=== PATIENT | male | born 2000 | race Caucasian/White ===

== ENCOUNTER 2023-03-05 08:40 | Outpatient (AMB) | payer OTHER, SELFPAY ==
--- NOTE | 2023-03-05 08:58 | MHC.OFFWIV ---
Intake Vital Signs 03/05/23 09:03 Height 5 ft 8 in BP 112/70 Blood Pressure Location Rt brachial Position Sitting Pulse 93 Pulse Source Pulse Oximeter Temp 97.9 F Temp Source Temporal Artery Scan Pulse Oximetry (%) 99 Oxygen Delivery Method Room Air Intake Visit Reasons: [employer]ATE tested + Covid [id number] Intake Note: Pt is here stating he tested positive for COVID at home on 03/04/23. Pt is requesting a school and work note stating his five day quarantine. 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 He had a positive COVID test at home yesterday, and requires a note for school and work due to need for isolation. He reports generalized fatigue, body aches, fever, some chest congestion. He states he used his girlfriend's inhaler several times, which was helpful for the cough/chest tightness. Denies any shortness of breath. Denies any GI symptoms. [facility] Social History Patient Tobacco Use Status: Never used Tobacco Review of Systems Const All systems reviewed & are unremarkable except as noted in HPI and below Physical Exam Vital Signs: Last Vital Signs Temp 97.9 F 03/05/23 09:03 Pulse 93 03/05/23 09:03 BP 112/70 03/05/23 09:03 Pulse Ox 99 03/05/23 09:03 Oxygen Delivery Method Room Air 03/05/23 09:03 Const General: cooperative and ill appearing acutely HEENT Head: Yes normal to inspection Ears: hearing grossly normal bilaterally General nose exam: Normal external nose present and Normal nasal mucous membranes and turbinates present Face and sinus: Yes normal facial exam Neck Neck: Yes no lymphadenopathy Resp Effort & Inspection: normal respiratory effort and Actively coughing Quality: dry Auscultation: clear to auscultation bilaterally Cardio Palpation: normal PMI Rate: regular rate Rhythm: regular rhythm Skin General skin exam: no rashes or lesions noted Extrem General: Yes capillary refill normal and Yes no clubbing, cyanosis or edema Psych Appearance: grossly normal Mental Status: mental status grossly normal Speech and movement: Normal speech and movement present Assessment & Plan Assessment & Plan (1) COVID-19: Code(s): U07.1 - COVID-19 Plan: Patient had positive COVID-19 test yesterday. I provided him with a note for work and school outlining the need/dates for isolation per CDC guidelines. Advised him [id number] cold/flu products for symptomatic treatment, inlcuding Tylenol/Motrin, decongestants. If his symptoms worsen or he develops any shortness of breath, he should go to the ED for evaluation. He verbalizes understanding and agrees to plan. (2) Cough: Code(s): R05.9 - Cough, unspecified Qualifiers: Cough type: acute Qualified Code(s): R05.1 - Acute cough Plan: Albuterol inhaler sent to pharmacy. Reviewed indications, proper use, side effects of this. Medications: New albuterol sulfate 90 mcg/actuation 1 inh inhalation QID PRN 6.7 grams 0RF shortness of breath or wheezing R05.9 - Cough, unspecified, U07.1 - COVID-19 Coding Level of Care Code Est Pt Level 3 (44539) Diagnoses COVID-19 U07.1 Acute cough R05.1 Cough type: acute
[2023-03-05 09:03] VITALS: BP 112/70; PULSE 93; TEMP 36.6; O2SAT 99
== END 2023-03-05 09:56 | disposition home or self-care (01) ==
PROVIDERS: PCP Nurse Practitioner Family; Visit Provider Nurse Practitioner Family
DX: U07.1 COVID-19 (principal); R05.1 Acute cough
CPT/HCPCS: 99213

== ENCOUNTER 2023-06-27 14:15 | Outpatient (AMB) | payer OTHER, SELFPAY ==
[2023-06-27 14:23] VITALS: BP 130/78; PULSE 73; O2SAT 98; BMI 23.7
--- NOTE | 2023-06-27 14:23 | MHC.PC.OV ---
Vital Signs 06/27/23 14:23 Height 5 ft 8 in Weight 156 lb 2 oz BMI 23.7 BP 130/78 Blood Pressure Location Rt brachial Position Sitting Pulse 73 Pulse Source Pulse Oximeter Pulse Oximetry (%) 98 Oxygen Delivery Method Room Air Intake Visit Reasons: Est care Intake Note: Pt is here to est care Allergies No Known Allergies Allergy (Unverified 06/27/23 14:34) Medication List - Last Reconciled 06/27/23 by LEONARDA Martin No Known Home Meds Tobacco use date assessed: 06/27/23 Dental Screening Dental Screen Date: 06/27/23 Did you have a dental visit in the last 12 months?: No Did you have a dental problem in the last 6 months where you did not have access to dental care?: No Was dental information given to patient?: No HPI HPI Comments History of Present Illness Details Patient is a 23-year-old male who I am meeting for the 1st time. He was seen in our walk-in 4 months prior for diagnosis of COVID and was given albuterol inhaler. Patient has been instructed to send past medical records from his previous provider. The patient states he has a past medical history of for ADHD and anxiety. He states that he is not taking medication for these in over a year. Patient is interested in restarting medications, he does have several restrictions based on his occupation as a road oiling truck driver. Patient will meet with community navigator to assist in finding psychiatrist. Patient denies SI/HI. [facility] Medical History (Updated 06/27/23 @ 15:03 by LEONARDA Martin) Generalized anxiety disorder ADHD Social History Housing: House Patient Tobacco Use Status: Never used Tobacco e-Cigarette/Vaping Use: Never Used Second Hand Smoke Exposure: Yes service: No Current occupational status: employed Current occupation: [employer] Current occupational exposures/hazards: No Questionnaire PHQ-9 Over the last 2 weeks, how often have you been bothered by any of the following problems? 1. Little interest or pleasure in doing things: not at all 2. Feeling down, depressed, or hopeless: not at all 3. Trouble falling or staying asleep, or sleeping too much: not at all 4. Feeling tired or having little energy: several days 5. Poor appetite or overeating: not at all 6. Feeling bad about yourself - or that you are a failure or have let yourself or your family down: not at all 7. Trouble concentrating on things, such as reading the newspaper or watching television: not at all 8. Moving or speaking so slowly that other people could have noticed. Or the opposite - being so fidgety or restless that you have been moving around a lot more than usual: not at all 9. Thoughts that you would be better off or of hurting yourself in some way: not at all Total score: 1 Depression Screening Interpretation: Negative Depression Screening Done: Yes 00210 - PHQ-9 Billing: Yes Source: Developed by Drs. Dany Campa, Amy Pack, Shane Fernandez and colleagues, with an educational erica from [employer]. Thrive Questionnaire Date Thrive assessed: 06/27/23 I am a: Patient What is your living situation today?: I have a steady place to live Within the past 12 months, did the food you bought not last and you didn't have the money to get more?: Never true Within the past 12 months, did you worry whether your food would run out before you got money to buy more?: Never true Do you have trouble paying for medicines?: No Do you have trouble getting transportation to medical appointments?: No Do you have trouble paying your heating and electricity bill?: No Do you have trouble taking care of your child, family member or friend?: No Do you have trouble with day-to-day activities such as bathing, preparing meals, shopping, managing finances, etc.?: No Are you currently unemployed and looking for a job?: No Are you interested in more education?: No THRIVE Score: 0 AUDIT C Alcohol Use Questionnaire (AUDIT-C) 1. How often do you have a drink containing alcohol?: Monthly or less 2. How many drinks containing alcohol do you have on a typical day when you are drinking?: 1 or 2 3. How often do you have six or more drinks on one occasion?: Less than monthly Total Score: 2 ENOCH-7 AMB Questionnaire ENOCH-7 Date ENOCH - 7 assessed: 06/27/23 Feeling nervous, anxious, or on edge: 1 = Several days Not being able to stop or control worryin = Several days Worrying too much about different things: 1 = Several days Trouble relaxin = Several days Being so restless that it is hard to sit still: 1 = Several days Becoming easily annoyed or irritable: 0 = Not at all Feeling afraid as if something awful might happen: 0 = Not at all Total ENOCH-7 score (0-4 normal; 5-9 mild; 10-14 moderate; 15-21 severe): 5 Source: Developed by Drs. Dany Campa, Amy Pack, Shane Fernandez and colleagues, with an educational erica from [employer]. ENOCH-7 Assessment Billing ENOCH-7 Assessment Tool: NEOCH-7 Assessment 88233 Review of Systems Const Details: Constitutional : No Weight loss, No Fever, No Chills, No Fatigue, No Malaise Cardiovascular : No Chest Pain, No SOB, No Dyspnea on Exertion, No Orthopnea, No Edema, No Palpitations Respiratory : No Cough, No Sputum, No Wheezing Gastrointestinal : No Nausea, No Vomiting, No Diarrhea, No Constipation, No abdominal Pain, No Hematochezia, No Melena Genitourinary : No Dysuria, No Urinary Frequency, No Hematuria, Musculoskeletal : No joint pain, No Myalgias, No Joint Swelling Skin : No Skin Lesions, No rash Neuro : No Weakness, No Numbness, No Dizziness, No Headache Psych : Admits little Anxiety/Panic, No Depression Heme/Lymph: No Bruising, No Bleeding,No Lymphadenopathy Endocrine : No Polyuria, No Polydipsia All other systems reviewed and are negative Physical exam (Primary Care) Care Plan Goal for BP management: Vital signs reviewed stable. Tobacco/Smoking Status: Tobacco use Status Patient Tobacco Use Status Never used Tobacco 06/27/23 14:23 Depression Screening Interpretation: Negative Const General: cooperative and no acute distress Orientation/consciousness: patient oriented x3 Limitations: no limitations Eyes Direct Ophthalmoscopy: normal light reflex and no photophobia Neck Neck: Yes normal visual inspection and Yes full ROM Chest Chest palpation & inspection: normal inspection of the chest Resp Effort & Inspection: normal respiratory effort Auscultation: clear to auscultation bilaterally Cardio Rate: regular rate Rhythm: regular rhythm Heart sounds: S1 normal heart sound present and S2 normal heart sound present Neuro General: patient oriented x3 Cranial nerves: Yes CN's II-XII intact bilaterally Cognition (Neuro): normal cognition Psych Affect: normal affect Attitude: cooperative Thought process: Normal thought process present Thought content: Normal thought content present Insight: Good insight present (Psych) Judgement: Good judgement present (Psych) Assessment and Plan Assessment & Plan (1) Generalized anxiety disorder: Comment: Patient is meeting with in office community navigator to find psychiatrist. Patient would not like to start medications at this time. Code(s): F41.1 - Generalized anxiety disorder Plan: Patient will draw labs Plan Follow-up for physical exam 3 months Orders: Orders Comprehensive Met. Panel Today Z91.89 - Other specified personal risk factors, not elsewhere classified Lipid Panel Today Z13.220 - Encounter for screening for lipoid disorders Complete Blood Count Auto Diff Today Z13.0 - Encounter for screening for diseases of the blood and blood-forming organs and certain disorders involving the immune mechanism Vitamin D 25-OH (D2 and D3) Today Z13.21 - Encounter for screening for nutritional disorder Vitamin B6 Today Z13.21 - Encounter for screening for nutritional disorder Vitamin B12 Today Z13.21 - Encounter for screening for nutritional disorder UA CC w/rflx Micro + Cult Today Z13.89 - Encounter for screening for other disorder TSH reflex Free T4 Today Z13.29 - Encounter for screening for other suspected endocrine disorder Coding Level of Care Code Est Pt Level 3 (60484) Diagnoses Generalized anxiety disorder F41.1 Additional Codes ENOCH-7 Assessment Billing - ENOCH-7 Assessment Tool: ENOCH-7 Assessment 29758 ([id number]) Time Spent (min) 25
== END 2023-06-27 16:39 | disposition home or self-care (01) ==
PROVIDERS: PCP Nurse Practitioner Family; Visit Provider Nurse Practitioner Primary Care
DX: F41.1 Generalized anxiety disorder (principal)
CPT/HCPCS: 99213

== ENCOUNTER 2023-06-28 10:31 | Outpatient (REF) | payer OTHER, SELFPAY ==
[2023-06-28 11:33] LABS: MANUAL DIFF FLAG NO
[2023-06-28 11:40] LABS: Basophils Percent Auto 0.7 % (0-2); Eosinophils Absolute Auto 0.1 X10*3/uL (0.0-0.4); Eosinophils Percent Auto 1.2 % (0-4); Hematocrit 42.8 % (42.0-52.0); Hemoglobin 14.3 g/dl (14.0-18.0); Imm Gran Abs Auto 0.01 X10*3/uL (0.00-0.03); Imm Gran Pct Auto 0.2 % (0.0-0.4); Lymphocytes Absolute Auto 1.9 X10*3/uL (1.2-4.9); Lymphocytes Percent Auto 46.5 % (20-40); Mean Corpuscular HGB Conc 33.4 g/dl (31.0-36.0); Mean Corpuscular Hemoglobin 28.8 pg (27.0-33.0); Mean Corpuscular Volume 86.3 fL (80.0-98.0); Mean Platelet Volume 10.3 fL (9.4-12.4); Monocytes Absolute Auto 0.4 X10*3/uL (0.1-1.2); Monocytes Percent Auto 10.9 % (2-11); Neutrophils Absolute Auto 1.6 x10*3/uL (2.0-8.3); Neutrophils Percent Auto 40.5 % (45-73); Platelet Count 215 X10*3/uL (160-400); Red Blood Count 4.96 X10*6/uL (4.60-5.80); Red Cell Distribution Width 12.5 % (11.0-16.0)
[2023-06-28 12:13] LABS: Alanine Aminotransferase 12 U/L (0-40); Albumin Level 4.5 g/dL (3.5-5.0); Alkaline Phosphatase 40 U/L (39-117); Anion Gap 11 (12-20); Aspartate Amino Transferase 14 U/L (5-37); Bilirubin Total 0.5 mg/dL (0.0-1.0); Blood Urea Nitrogen 14 mg/dL (9-16); Calcium 9.7 mg/dL (8.4-10.2); Carbon Dioxide 27 mmol/L (22-29); Chloride 106 mmol/L (96-108); Cholesterol 137 mg/dL (<200); Estimated Glomerular Filt Rate > 60; Glucose Random 88 mg/dL (60-115); HDL Cholesterol 54 mg/dL (>40); LDL Cholesterol Calculated 74 mg/dL (<100); Potassium 4.1 mmol/L (3.3-5.1); Sodium 140 mmol/L (135-145); Total Protein 7.4 g/dL (6.5-8.0); Triglycerides 47 mg/dL (<150)
[2023-06-28 12:28] LABS: TSH reflex Free T4 1.09 uIU/mL (0.32-4.0)
[2023-06-28 12:30] LABS: Vitamin B12 361 pg/mL (200-900)
[2023-06-28 13:44] LABS: Appearance Urine Clear; Color Urine Yellow; Glucose Urine UA Negative (Negative); Leukocyte Esterase Urine Negative (Negative); Nitrite Urine Negative (Negative); Specific Gravity - Urine 1.025 (1.005-1.025); Urine Blood Negative (Negative); Urine Ketones Negative (Negative); Urine Protein Negative (Neg-Trace)
[2023-07-02 14:13] LABS: Vitamin B6 11.8 ng/mL (2.1-21.7)
[2023-07-03 13:33] LABS: Vitamin D 25-OH, D2 <4 ng/mL; Vitamin D 25-OH, D3 20 ng/mL; Vitamin D 25-OH, Total 20 ng/mL (30-100)
== END 2023-06-28 10:32 | disposition home or self-care (01) ==
LOC: HO.HMGCLDS 10:31
PROVIDERS: PCP Nurse Practitioner Primary Care; Visit Provider Nurse Practitioner Primary Care
DX: Z91.89 Other specified personal risk factors, not elsewhere classified (principal); Z13.0 Encounter for screening for diseases of the blood and blood-forming organs and certain disorders involving the immune mechanism; Z13.220 Encounter for screening for lipoid disorders; Z13.89 Encounter for screening for other disorder; Z13.21 Encounter for screening for nutritional disorder; Z13.29 Encounter for screening for other suspected endocrine disorder
CPT/HCPCS: 36415; 80053; 80061; 81003; 82306; 82607; 84207; 84443; 85025

== ENCOUNTER 2023-09-26 11:29 | Outpatient (AMB) | payer OTHER, SELFPAY ==
--- NOTE | 2023-09-26 11:31 | A.OFFPC_ITS ---
Vital Signs 09/26/23 11:34 Height 5 ft 8 in Weight 137 lb BMI 20.8 BP 128/84 Blood Pressure Location Lt brachial Position Sitting Pulse 92 Pulse Source Pulse Oximeter Pulse Oximetry (%) 98 Oxygen Delivery Method Room Air Intake Visit Reasons: Annual PE Intake Note: pt is here for his annual PE. Allergies No Known Allergies Allergy (Verified 09/26/23 11:48) Medication List - Last Reconciled 09/26/23 by LEONARDA Martin atomoxetine 80 mg PO DAILY sertraline 100 mg PO DAILY Tobacco use date assessed: 09/26/23 Dental Screening Dental Screen Date: 09/26/23 Did you have a dental visit in the last 12 months?: No Did you have a dental problem in the last 6 months where you did not have access to dental care?: No Was dental information given to patient?: No HPI HPI Comments History of Present Illness Details This is a 23-year-old male in today for physical exam. Do not have records on patient's last TD status however he believes it was within the past 5 years, will obtain records from [facility] home health. Patient has past medical history significant for ADHD-patient has establish care with psychiatry. Generalized anxiety-patient is establish care with Psychiatry currently utilizing sertraline 100 mg p.o. with good effect Bilateral knee pain-patient has history of chronic knee pain has utilize physical therapy in the past with good effect. Patient states his pain is now in control. Vitamin-D deficiency-patient has been taking vitamin D3 2000 units per day for the past 3 months. Will redraw [facility] Medical History (Updated 09/26/23 @ 12:02 by LEONARDA Martin) Generalized anxiety disorder ADHD Social History Housing: House Patient Tobacco Use Status: Never used Tobacco e-Cigarette/Vaping Use: Never Used Second Hand Smoke Exposure: Yes service: No Current occupational status: employed Current occupation: [employer] Current occupational exposures/hazards: No Questionnaire Thrive Questionnaire Date Thrive assessed: 06/27/23 AUDIT C Alcohol Use Questionnaire (AUDIT-C) 1. How often do you have a drink containing alcohol?: Monthly or less 2. How many drinks containing alcohol do you have on a typical day when you are drinking?: 1 or 2 3. How often do you have six or more drinks on one occasion?: Never Total Score: 1 ENOCH-7 AMB Questionnaire ENOCH-7 Date ENOCH - 7 assessed: 06/27/23 Source: Developed by Drs. Dany Campa, Amy Pack, Shane Fernandez and colleagues, with an educational erica from [employer]. Review of Systems Const All systems reviewed & are unremarkable except as noted in HPI and below Physical exam (Primary Care) Vital Signs: Last Vital Signs Pulse 92 09/26/23 11:34 BP 128/84 09/26/23 11:34 Pulse Ox 98 09/26/23 11:34 Oxygen Delivery Method Room Air 09/26/23 11:34 BMI result Body Mass Index 20.8 Tobacco/Smoking Status: Tobacco use Status Tobacco use date assessed 09/26/23 09/26/23 11:37 Patient Tobacco Use Status Never used Tobacco 09/26/23 11:37 e-Cigarette/Vaping Use Never Used 09/26/23 11:37 Thrive Assessment: Date of Thrive Assessment Date Thrive assessed 06/27/23 09/26/23 11:37 Const Other: Appearance: Alert.? Oriented X3.? No acute distress.? Head: Normocephalic, atraumatic, no step-offs or deformities Eyes: Pupils equal, round and reactive to light.? ENT: Pharynx normal.?TM intact and pearly skinner. Neck: Normal inspection.? Neck supple.? CVS: Normal heart rate and rhythm.? Pulses normal.? Respiratory: No respiratory distress.? Breath sounds normal.? Abdomen: Soft and nontender.? Skin: Skin warm and dry.? Normal skin color.? Normal skin turgor.? : Testes normal. Extremities: No lower extremity edema.? No calf ttp. 5/5 strength to bilateral upper and lower extremities Back: No midline tenderness, no C-spine tenderness, full range of motion, no CVA tenderness bilaterally Neuro: Oriented X 3.? No motor deficit.? No sensory deficit. CN 2-12 intact Assessment and Plan Assessment & Plan (1) Physical exam: Comment: Do not have records on patient's last TD status however he believes it was within the past 5 years, will obtain records from [facility] home health. Patient has past medical history significant for ADHD-patient has establish care with psychiatry. Generalized anxiety-patient is establish care with Psychiatry currently utilizing sertraline 100 mg p.o. with good effect Bilateral knee pain-patient has history of chronic knee pain has utilize physical therapy in the past with good effect. Patient states his pain is now in control. Vitamin-D deficiency-patient has been taking vitamin D3 2000 units per day for the past 3 months. Will redraw Patient has also been educated on the importance of performing self-testicular exams at least once per month. Should try to solidify healthy diet. Code(s): Z00.00 - Encounter for general adult medical examination without abnormal findings Plan Patient will have physical exam 1 year Coding Level of Care Code Est Pt Prev Care 18-39y(38804) Diagnoses Physical exam Z00.00 Time Spent (min) 25
[2023-09-26 11:34] VITALS: BP 128/84; PULSE 92; O2SAT 98; BMI 20.8
== END 2023-09-26 12:00 | disposition home or self-care (01) ==
PROVIDERS: PCP Nurse Practitioner Family; Visit Provider Nurse Practitioner Primary Care
DX: Z00.00 Encounter for general adult medical examination without abnormal findings (principal)
CPT/HCPCS: 99395